=== PATIENT | male | born 1930 | race Caucasian/White ===

== ENCOUNTER 2016-06-22 06:57 | Day surgery (SDC) | payer BC ==
[2016-06-17 15:45] LABS: HEMATOCRIT 32.1 % (40.0-51.0); HEMOGLOBIN 10.6 g/dL (13.6-17.8)
[2016-06-17 16:03] LABS: BUN (BLOOD UREA NITROGEN) 16 MG/DL (6-23); CALCIUM, SERUM 8.7 MG/DL (8.5-10.4); CHLORIDE, SERUM 108 MMOL/L (96-112); CO2 (CARBON DIOXIDE) 27 MMOL/L (24-34); CREATININE 1.48 MG/DL (0.70-1.30); GFR AFRICAN AMERICAN 49 ML/MIN (>=60); GFR NON AFRICAN AMERICAN 43 ML/MIN (>=60); GLUCOSE, SERUM 130 MG/DL (60-99); POTASSIUM, SERUM 4.7 MMOL/L (3.5-5.3); SODIUM, SERUM 145 MMOL/L (135-148)
--- NOTE | ~2016-06-22 | OP ---
Record Of Operation [facility] [address] [place]. [address] NAME: RAFAEL CAMPA : 30 STATUS : [facility]#: [id number] AGE: 86 ADM/REG DATE : 06/22/16 MR#: [id number] REPORT SERV DATE: 06/22/16 DICTATED BY: RAFAEL MEYERS DATE: 06/22/16 REPORT STATUS : Draft TRANSCRIBED BY: MODL DATE: 06/22/16 DATE OF PROCEDURE: 06/22/2016 PREOPERATIVE DIAGNOSIS: Large left popliteal artery aneurysm. POSTOPERATIVE DIAGNOSES: 1. Large left popliteal artery aneurysm. 2. Large left tibioperoneal trunk aneurysm. PROCEDURES: 1. Ultrasound-guided antegrade access left common femoral artery. 2. Left leg arteriogram. 3. Intravascular ultrasound of the left popliteal artery and tibioperoneal trunk. 4. Endovascular repair of left popliteal artery aneurysm (8 mm x 10 cm Viabahn, 10 mm x 5 cm Viabahn x2). 5. Endovascular repair of left tibioperoneal trunk artery aneurysm (5 mm x 2.5 cm Viabahn). NCQA SPECIALIST: Nate. ANESTHESIA: Local with MAC. ESTIMATED BLOOD LOSS: 50 mL. CONTRAST: 41 mL. IV FLUIDS: 600 mL. COMPLICATIONS: None. INDICATIONS: Mr. Campa is an 86-year-old man with history of recent endovascular abdominal aortic aneurysm repair. On postoperative surveillance, he is found to have a large, greater than 3 cm left popliteal artery aneurysm with significant thrombus burden. 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 He is brought today for left leg arteriogram with possible endovascular repair of the popliteal aneurysm. DETAILS OF PROCEDURE: After informed consent was obtained, the patient was brought to the endovascular suite and placed in supine position. After administration of IV sedation, he was prepped and draped in the usual sterile fashion. A time-out was performed. I commenced the procedure with ultrasound-guided antegrade access of the left common femoral artery since he had an aortic stent graft in place. Permanent image of the artery documenting patency was saved and stored in the patient's chart. I anesthetized the skin accessed with a micropuncture needle, passed a micropuncture wire, confirmed within the SFA under fluoroscopy. I then upsized to a 5-Portuguese sheath over a Bentson wire. Left leg arteriogram was performed, which showed a patent nonaneurysmal SFA. There was obvious irregularity in the lumen of the popliteal artery above the knee and crossing the joint. Below the knee, Record Of Operation [facility] [address] [place]. [address] NAME: RAFAEL CAMPA : 30 STATUS : [facility]#: [id number] AGE: 86 ADM/REG DATE : 06/22/16 MR#: [id number] REPORT SERV DATE: 06/22/16 DICTATED BY: RAFAEL MEYERS DATE: 06/22/16 REPORT STATUS : Draft TRANSCRIBED BY: MODL DATE: 06/22/16 there was a fairly sharp turn of the below-knee popliteal artery. The anterior tibial artery is patent at least proximally. 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 Peroneal artery is the dominant runoff vessel. There is at this point also noted a focal aneurysmal segment of the tibioperoneal trunk, which was not appreciated on duplex. At that point, we exchanged for an 0.018 wire. We then performed intravascular ultrasound to more closely examine our potential landing zones for endovascular stent placement. Using intravascular ultrasound, we were able to clearly demonstrate a large aneurysm in the popliteal artery with significant thrombus throughout. I also used intravascular ultrasound of the tibioperoneal trunk, which again demonstrates large focal aneurysmal segment with a saccular aneurysm with significant thrombus. At that point, we exchanged back for the Bentson wire. Given the large stent size that will be required for the aneurysm repair, I made a stab incision in the left femoral access site down to the common femoral artery. We dilated the subcutaneous tract. We then placed two ProGlide closure devices in the Preclose technique. We systemically heparinized. We then placed an 11-Portuguese sheath. We then exchanged back for the 0.018 wire. We started first landing a first end in the below-knee popliteal artery, which was an 8 mm x 10 cm Viabahn stent. We then placed a second Viabahn which was a 10 mm x 5 cm stent. This was not quite long enough and we did not have a 10 mm x 10 cm stent. As a result, a second 10 mm x 5 cm Viabahn stent was placed. The stents were postdilated with an 8 mm x 40 mm balloon. Repeat contrast injection shows perfect placement of the stents with exclusion of the popliteal artery aneurysm with no evidence of endoleak. I then moved down the tibioperoneal trunk where a 5 mm x 2.5 cm Viabahn was placed excluding this aneurysmal portion as well. This was postdilated with a 4 balloon. Repeat contrast injection shows patency of the stent with exclusion of the aneurysm. Repeat contrast injection distally shows preserved distal runoff. Satisfied with that, wires and catheters were removed. The access site was successfully closed with a ProGlide closure devices in the Preclose technique. The incision in the left groin was closed with 4-0 Monocryl. Sterile dressings were applied. The patient tolerated the procedure well without complications. I was present for this entire case as dictated. DEBORAH/MANDO Rafael Meyers M.D. / [id number] CC: Ruby Baxter D.O.
[~2016-06-22 06:57] MED LIST: CO Q-10200 MG PO; FISH-EPA1000 MG PO; GARLIC; GLUCPH PO; HEMOCYTE324 MG PO; LOP25 PO; MERIBIN5 MG OR; PROTONIX PO; SAW PALMETT2 PO; SYN125 PO; TRAZ50 PO; UROXATRAL PO; VITAMIN B-121000 MC1 SL; VITAMIN D31000 UNIT PO; VITC500 PO; ZOCOR40 PO
[2016-06-22] MEDS ORDERED: PLAVIX PO (12:45)
== END 2016-06-22 16:45 | disposition home or self-care (01) ==
LOC: SDC 06:57 → SSU1 11:32
PROVIDERS: Surgery
PROC: B41GYZZ Fluoroscopy of Left Lower Extremity Arteries using Other Contrast (ICD-10-PCS; principal; 2016-06-22 08:15)
PROC: 04PY3DZ Removal of Intraluminal Device from Lower Artery, Percutaneous Approach (ICD-10-PCS; 2016-06-22 08:15)
PROC: 047N34Z Dilation of Left Popliteal Artery with Drug-eluting Intraluminal Device, Percutaneous Approach (ICD-10-PCS; 2016-06-22 08:15)
PROC: 047U3ZZ Dilation of Left Peroneal Artery, Percutaneous Approach (ICD-10-PCS; 2016-06-22 08:15)
DX: I72.4 Aneurysm of artery of lower extremity (principal); E03.9 Hypothyroidism, unspecified; E78.5 Hyperlipidemia, unspecified; Z88.2 Allergy status to sulfonamides; Z79.899 Other long term (current) drug therapy
CPT/HCPCS: 36246; 37236; 37237; 37252; 37253; 75710; 76937; 80048; 85014; 85018; 93005; A9270-GY; C1725; C1753; C1760; C1769; C1874; C1887; C1894; J0690; J3010; Q9966